=== PATIENT | male | born 1985 | race Two or more races ===

== ENCOUNTER 2020-01-28 21:20 | Emergency (ER) | payer SELFPAY ==
[~2020-01-28] VITALS: Ht 162.6 cm; Wt 81.8 kg
--- NOTE | 2020-01-28 21:46 | PHYS DOC ---
Past Medical History Past Medical History: No Pertinent History Past Surgical History: No Surgical History Smoking Status: Never Smoker Alcohol Use: Rarely Drug Use: None General Adult EDM: Chief Complaint: FEVER HPI: HPI: Patient is a 34 year old male who presents for evaluation of cough congestion and some upper back discomfort. Patient has been having some wheezing as well. Patient was tested earlier today at [facility] for COVID but those results are not yet known. However he started having more symptoms so came to hospital for evaluation. Patient was exposed to a roommate who has known COVID infection and he has a fever in triage. Review of Systems: Review of Systems: Constitutional: has fever or chills. [] Eyes: Denies change in visual acuity. [] HENT: has nasal congestion and sore throat. [] Respiratory: has cough and shortness of breath. [] Cardiovascular: has chest pain no edema. [] GI: Denies abdominal pain, nausea, vomiting, bloody stools or diarrhea. [] : Denies dysuria. [] Musculoskeletal: has upper back pain no joint pain. [] Integument: Denies rash. [] Neurologic: Denies headache, focal weakness or sensory changes. [] Endocrine: Denies polyuria or polydipsia. [] Lymphatic: Denies swollen glands. [] Psychiatric: Denies depression or anxiety. [] Heart Score: Risk Factors: Risk Factors: DM, Current or recent (<one month) smoker, HTN, HLP, family history of CAD, obesity. Risk Scores: Score 0 - 3: 2.5% MACE over next 6 weeks - Discharge Home Score 4 - 6: 20.3% MACE over next 6 weeks - Admit for Clinical Observation Score 7 - 10: 72.7% MACE over next 6 weeks - Early Invasive Strategies Physical Exam: PE: Constitutional: Well developed, well nourished, moderate acute distress, non- toxic appearance. [] HENT: Normocephalic, atraumatic, bilateral external ears normal, oropharynx moist, no oral exudates, nose normal. [] Eyes: PERRL, EOMI, conjunctiva normal, no discharge. [] Neck: Normal range of motion, no tenderness, supple, no stridor. [] Cardiovascular:Heart tachy rate regular rhythm, no murmur [] Lungs & Thorax: Bilateral breath sounds diminished with some rhonchi present bilaterally [] Abdomen: Bowel sounds normal, soft, no tenderness, no masses, no pulsatile masses. [] Skin: Warm, dry, no erythema, no rash. [] Back: No tenderness. [] Extremities: No tenderness, no cyanosis, no clubbing, ROM intact, no edema. [] Neurologic: Alert and oriented, normal motor function, normal sensory function, no focal deficits noted. [] Psychologic: Affect normal, judgement normal, mood normal. [] Current Patient Data: Labs: Laboratory Tests Test 01/28/20 22:45 White Blood Count 4.3 x10^3/uL Red Blood Count 4.58 x10^6/uL Hemoglobin 14.6 g/dL Hematocrit 41.5 % Mean Corpuscular Volume 91 fL Mean Corpuscular Hemoglobin 32 pg Mean Corpuscular Hemoglobin Concent 35 g/dL Red Cell Distribution Width 13.4 % Platelet Count 173 x10^3/uL Neutrophils (%) (Auto) 68 % Lymphocytes (%) (Auto) 25 % Monocytes (%) (Auto) 6 % Eosinophils (%) (Auto) 0 % Basophils (%) (Auto) 0 % Neutrophils # (Auto) 2.9 x10^3/uL Lymphocytes # (Auto) 1.1 x10^3/uL Monocytes # (Auto) 0.3 x10^3/uL Eosinophils # (Auto) 0.0 x10^3/uL Basophils # (Auto) 0.0 x10^3/uL Sodium Level 139 mmol/L Potassium Level 4.0 mmol/L Chloride Level 103 mmol/L Carbon Dioxide Level 28 mmol/L Anion Gap 8 Blood Urea Nitrogen 12 mg/dL Creatinine 1.5 mg/dL Estimated GFR (Cockcroft-Gault) 53.3 BUN/Creatinine Ratio 8 Glucose Level 103 mg/dL Calcium Level 8.4 mg/dL Total Bilirubin 0.3 mg/dL Aspartate Amino Transf (AST/SGOT) 55 U/L Alanine Aminotransferase (ALT/SGPT) 52 U/L Alkaline Phosphatase 45 U/L Total Protein 7.3 g/dL Albumin 3.0 g/dL Albumin/Globulin Ratio 0.7 Current Medications Medications (Trade) Dose Ordered Sig/Corey Route PRN Reason Start Time Stop Time Status Last Admin Dose Admin Sodium Chloride 1,000 ml @ 999 mls/hr 1X ONCE IV 01/28/20 23:00 01/29/20 00:00 01/28/20 22:41 Ceftriaxone Sodium (Rocephin) 1 gm 1X ONCE IVP 01/28/20 23:00 01/28/20 23:01 DC 01/28/20 22:40 Azithromycin (Zithromax) 500 mg 1X ONCE PO 01/28/20 23:00 01/28/20 23:01 DC 01/28/20 22:40 Methylprednisolone Sodium Succinate (SOLU-Medrol 125MG VIAL) 125 mg 1X ONCE IV 01/28/20 23:00 01/28/20 23:01 DC 01/28/20 22:40 Acetaminophen (Tylenol) 1,000 mg 1X ONCE PO 01/28/20 23:00 01/28/20 23:01 DC 01/28/20 22:40 EKG: EKG: Normal sinus rhythm, rate 99, leftward axis, inverted T waves in lead III and aVF, not STEMI [] Radiology/Procedures: Radiology/Procedures: [facility] [address] [place], [place] [id number] IMAGING REPORT Signed PATIENT: SHABBIR AHUJAED ACCOUNT: [id number] : 1985 LOCATION: ER AGE: 34 SEX: M EXAM STATUS: REG ER ORD. PHYSICIAN: PIYUSH MORELAND DO REASON: cough, congestion, chest wall pain PROCEDURE: CHEST AP ONLY Exam: Chest one view INDICATION: Cough, congestion TECHNIQUE: Frontal view of the chest Comparisons: None FINDINGS: The cardiomediastinal silhouette and pulmonary vessels are within normal limits. Patchy bilateral airspace disease is noted. Small bilateral pulmonary nodules. IMPRESSION: Patchy bilateral airspace disease. There is a possibility of bilateral pulmonary nodules. CT is recommended for further evaluation. Electronically signed by: Roe Santiago MD (01/28/2020 10:10 PM) [id number] DICTATED and SIGNED BY: ROE SANTIAGO MD DATE: 01/28/20 2210 [] Course & Med Decision Making: Course & Med Decision Making Pertinent Labs and Imaging studies reviewed. (See chart for details) [] Dragon Disclaimer: Dragon Disclaimer: This electronic medical record was generated, in whole or in part, using a voice recognition dictation system. 2335 stable, feeling somewhat better at this time. Sats are 96% on room air. Patient does not meet admission criteria at this time. I do strongly suspect that he has COVID-19 based upon symptoms and known exposure. Prescription for Zithromax and Medrol Dosepak given. He will follow-up instructions given and should his symptoms worsen he may need to return to the hospital for admission Departure Departure Impression: Primary Impression: Person under investigation for COVID-19 Additional Impression: Pulmonary infiltrates on CXR Disposition: HOME, SELF-CARE Condition: STABLE Referrals: NO PCP (PCP) BONI HORNE MD Patient Instructions: Bronchitis Additional Instructions: quarantine for 14 days or until symptom free Definicin Se le realiz la prueba de deteccin del COVID-19 o se le diagnostic dicha enfermedad. Es alem infeccin ocasionada por un nuevo tipo de coronavirus. En la mayora de los casos, el COVID-19 provoca sntomas similares a los del resfriado. En algunas personas, puede ocasionar sntomas ms graves, juan problemas respiratorios. No existe un tratamiento para el virus COVID-19. El cuerpo elimina la infeccin con el tiempo. El cuidado personal ayuda a aliviar el malestar. Pasos que debe seguir 1. Cuidados personales Descanse cuando sea necesario. Los hbitos saludables pueden ayudarlo a sentirse mejor. Algunas medidas para lograr cambios incluyen lo siguiente: - Elija alimentos saludables, juan frutas y verduras. Berta abundante cantidad de agua bill todo el da. - Duerma guillermina por la noche. - Si fuma, intente no hacerlo. [place] ayudar a mejorar la respiracin. - Evite el alcohol. 2. Mantenga sanos a los dems El virus puede contagiarse a otras personas. Cada vez que estornuda o tose, se liberan gotitas. Las gotitas pueden entrar en la boca, la nariz o los ojos de las personas que se encuentran cerca de usted y ocasionar la infeccin. Para reducir las probabilidades de contagiar el virus COVID-19 a otros, tenga en cuenta lo siguiente: - Qudese en casa el tiempo que el mdico se lo indique. Es posible que deba quedarse en casa hasta que la enfermedad desaparezca. Salga nicamente para recibir atencin mdica o en elizabeth de urgencia. - Evite las reas pblicas, los eventos o el transporte pblico. No reanude las actividades laborales o escolares hasta que el mdico lo autorice. - Llame previamente si necesita asistir a un centro mdico. Avise que es posible que haya contrado COVID-19. [place] ayudar a que le indiquen adonde debe dirigirse. Tai pueden pedirle que use alem mscara facial cuando vaya al consultorio. Si llama a los servicios de asistencia mdica de urgencias, avseles que es posible que haya contrado COVID-19. Mientras est en casa: - Evite el contacto directo con otras personas. Mantngase a alem distancia aproximada de 2 metros. Si es posible, pasen la mayor parte del tiempo en orlando separadas. - Use alem mscara facial si estar en contacto directo con otras personas, por ejemplo, si compartir alem habitacin o un vehculo. - Pida a alguien que limpie las superficies comunes de la casa. Limpie picaportes, mesadas y lavamanos con limpiadores domsticos todos los bray. - Al toser o estornudar, cbrase con un pauelo de papel. Despus de usarlo, deschelo de inmediato. Si no tiene un pauelo de papel, tosa o estornude en el pliegue del codo. - Lvese las nii con frecuencia. Lvese las nii despus de estornudar o toser. Lvese con agua y jabn bill, al menos, 20 segundos. Si no dispone de agua y jabn, use un limpiador de nii a base de alcohol. - No cocine para otros. Evite compartir objetos personales, juan tenedores, cucharas o cepillos de dientes. - Mientras est enfermo, evite el contacto directo con las mascotas. No hay indicios de si el virus se transmite a las mascotas. Esta es alem medida de seguridad que debe tenerse en cuenta hasta que se sepa ms acerca de shiva virus. El aislamiento puede ser frustrante. La interaccin social puede ayudar. Ma ntngase en contacto con amigos y familiares por telfono u otros medios tecnolgicos. Puede interactuar con otras personas en el hogar, dony mantenga alem distancia rodriguez de aproximadamente 2 metros. Seguimiento Las pruebas para confirmar la presencia del COVID-19 pueden demorar algunos bray. Es posible que deba seguir los pasos mencionados anteriormente hasta que estn los r esultados de las pruebas. Lo llamarn del consultorio mdico para saber si schaefer habido algn cambio en hauser johan. Tambin le avisarn cuando pueda volver a estar cerca de otras personas. Problemas a los que debe estar atento Comunquese con el mdico si no se recupera segn lo previsto o si tiene problemas juan los siguientes: - Dificultad para respirar - Dolor de pecho - Empeoramiento de los sntomas Si raven que tiene alem urgencia, llame a los servicios de asistencia mdica de urgencias de inmediato. As taken from [facility] Methylprednisolone (MEDROL) 4 Mg Tab.ds.pk 1 PKG PO UD for inflammation, #1 PKG Prov: PIYUSH MORELAND DO 01/28/20 Azithromycin (ZITHROMAX TRI-MERRICK) 500 Mg Tablet 1 TAB PO DAILY, #3 TAB Prov: PIYUSH MORELAND DO 01/28/20 Justicifation of Admission Dx: Justifications for Admission: Justification of Admission Dx: N/A COVID-19 Assessment: COVID-19 Patient Risks: Age 65 or older: No Sign of co-morbidity: No Exp to person + for COVID: Yes Exp to PUI: Yes Travel from affected area: No Lower respiratory symptoms: Yes Fever: Yes Other: No PPE Use: Full PPE with N95 mask or PAPR: Yes PIYUSH MORELAND DO Jan 28, 2020 21:46
--- NOTE | 2020-01-28 22:13 | RAD ---
Exam: Chest one view INDICATION: Cough, congestion TECHNIQUE: Frontal view of the chest Comparisons: None FINDINGS: The cardiomediastinal silhouette and pulmonary vessels are within normal limits. Patchy bilateral airspace disease is noted. Small bilateral pulmonary nodules. IMPRESSION: Patchy bilateral airspace disease. There is a possibility of bilateral pulmonary nodules. CT is recommended for further evaluation. Electronically signed by: Roe Benson MD (01/28/2020 10:10 PM) [id number]
[2020-01-28 22:53] LABS: BASO % 0 % (0-3); EOS % 0 % (0-3); HEMATOCRIT 41.5 % (39.0-53.0); HEMOGLOBIN 14.6 g/dL (13.0-17.5); LYMPH # 1.1 x10^3/uL (1.0-4.8); LYMPH % 25 % (24-48); MEAN CORPUSCULAR HEMOGLOBIN 32 pg (25-35); MEAN CORPUSCULAR HGB CONC 35 g/dL (31-37); MEAN CORPUSCULAR VOLUME 91 fL (79-100); MONO # 0.3 x10^3/uL (0.0-1.1); MONO % 6 % (0-9); NEUT # 2.9 x10^3/uL (1.8-7.7); NEUT % 68 % (31-73); PLATELET COUNT 173 x10^3/uL (140-400); RED BLOOD COUNT 4.58 x10^6/uL (4.30-5.70); RED CELL DISTRIBUTION WIDTH 13.4 % (11.5-14.5); WHITE BLOOD COUNT 4.3 x10^3/uL (4.0-11.0)
[2020-01-28] MEDS ORDERED: cefTRIAXone IV Push 1 GM VIAL. IVP ONE (23:00)
[2020-01-28] MEDS ORDERED: methylPREDNISolone SOD SUCC PF 125 MG/2 ML VIAL. IV ONE (23:00)
[2020-01-28] MEDS ORDERED: ACETAMINOPHEN 500 MG TABLET PO ONE (23:00)
[2020-01-28] MEDS ORDERED: AZITHROMYCIN 250 MG TABLET. PO ONE (23:00)
[2020-01-28] MEDS ORDERED: IV NORMAL SALINE 1000ML BAG 1,000 ML IV ONE (23:00)
[2020-01-28 23:01] LABS: CALCIUM 8.4 mg/dL (8.5-10.1); CREATININE 1.5 mg/dL (0.7-1.3); GFR 53.3
[2020-01-28 23:08] LABS: ALBUMIN/GLOBULIN RATIO 0.7 (1.0-1.7); TOTAL BILIRUBIN 0.3 mg/dL (0.2-1.0); TOTAL PROTEIN 7.3 g/dL (6.4-8.2)
[2020-01-28 23:30] VITALS: BP 124/72
[2020-01-28] MEDS ORDERED: METH4TAB2 PO (23:40)
[2020-01-28] MEDS ORDERED: AZIT500T2 PO (23:40)
--- NOTE | 2020-02-02 05:13 | EKG ---
[facility] [address] [place] [id number] Test Date: 2020-01-28 Test Time: 21:38:16 Pat Name: CATHLEEN AHUJA Department: Room: Gender: M Travel Pt: : 1985 Requested By: PIYUSH MORELAND Order Number: [id number] Reading MD: Measurements Intervals Ira Rate: 99 P: 37 AK: 128 QRS: 61 QRSD: 74 T: 10 QT: 320 QTc: 410 Interpretive Statements SINUS RHYTHM LEFT ATRIAL ABNORMALITY ABNORMAL ECG RI6.01 No previous ECG available for comparison
== END 2020-01-28 23:53 | disposition home or self-care (01) ==
LOC: ER 21:20
DX: R91.8 Other nonspecific abnormal finding of lung field (principal); Z20.828 Contact with and (suspected) exposure to other viral communicable diseases; M54.6 Pain in thoracic spine; R06.2 Wheezing
CPT/HCPCS: 36415; 71045; 80053; 85025; 93005; 96374; 96375; 99285; J0696; J2930; J7030